=== PATIENT | female | born 1985 | race Caucasian/White ===

== ENCOUNTER 2022-06-17 18:43 | Emergency (ER) | payer OTHER ==
[2022-06-17 18:54] VITALS: BP 102/60; PULSE 92; RESP 16; TEMP 98
--- NOTE | 2022-06-17 19:26 | XR ---
EXAMINATION TYPE: XR finger LT DATE OF EXAM: 06/17/2022 COMPARISON: NONE HISTORY: Laceration TECHNIQUE: 3 views FINDINGS: I see no fracture nor dislocation. Joint spaces are normal. There is minimal soft tissue de formity on the medial aspect of the PIP joint consistent with a laceration. IMPRESSION: Normal laceration deformity. No fracture seen. No foreign body.
[2022-06-17] MEDS ORDERED: DIPH,PERTUS(ACELL)TETVAC-LF 0.5 ML VIAL IM ONE (19:50)
[2022-06-17] MEDS ORDERED: TOPICAL SKIN ADHESIVE 1 EACH AMP TOPICAL ONE (19:50)
--- NOTE | 2022-06-17 20:01 | ED ---
Wound/Laceration HPI - General Chief Complaint: Wound/Laceration Stated Complaint: lt hand laceration - [facility] Time Seen by Provider: 06/17/22 19:42 Source: patient, RN notes reviewed Mode of arrival: ambulatory Limitations: no limitations - History of Present Illness Initial Comments: This is a pleasant, [id number] 36-year-old female who presents to the emergency department after sustaining a laceration to the extensor aspect of her left index finger at work. 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 Patient did clean the cut and attempted to close it with liquid stitch. Patient states when she started using again she had some bleeding. Patient is complaining of some irritation pain to the area. Patient was concerned that the bone might have been broken. Patient denies any distal or proximal injuries. No distal paresthesias. Last tetanus is unknown. No headache, no fever or chills, no changes in vision or hearing, no sore throat or difficulty with speech, no neck pain, no chest pain or shortness of breath, no abdominal pain, no nausea or vomiting, no changes in urination or bowel movements, no numbness or tingling, no skin rashes or lesions. Past medical, surgical, social, and family history reviewed. - Related Data Home Medications Medication Instructions Recorded Confirmed clindamycin HCL [Cleocin HCl] 300 mg PO BID 06/17/22 06/17/22 modafiniL [Provigil] 100 mg PO BID PRN 06/17/22 06/17/22 Allergies Allergy/AdvReac Type Severity Reaction Status Date / Time amoxicillin Allergy Unknown Verified 06/17/22 20:14 Childhood Penicillins Allergy Unknown Verified 06/17/22 20:14 Childhood Review of Systems ROS Statement: Those systems with pertinent positive or pertinent negative responses have been documented in the HPI. ROS Other: All systems not noted in ROS Statement are negative. Past Medical History Additional Past Medical History / Comment(s): narcolepsy History of Any Multi-Drug Resistant Organisms: None Reported Past Surgical History: Section Additional Past Surgical History / Comment(s): tummy tuck, gastric bypass Past Psychological History: No Psychological Hx Reported Smoking Status: Never smoker Past Alcohol Use History: None Reported Past Drug Use History: None Reported General Exam - General Exam Comments Initial Comments: Patient in no distress, does not appear to be ill or toxic. Limitations: no limitations General appearance: alert, in no apparent distress Head exam: Present: atraumatic, normocephalic, normal inspection Eye exam: Present: normal appearance, EOMI Neck exam: Present: normal inspection Respiratory exam: Present: normal lung sounds bilaterally. Absent: respiratory distress Cardiovascular Exam: Present: regular rate, normal rhythm, normal heart sounds Extremities exam: Present: full ROM, tenderness (Minimal, dorsum of left index finger), normal capillary refill. Absent: pedal edema, joint swelling, other Left Elbow exam: Present: normal inspection, full ROM. Absent: tenderness Forearm Wrist exam: Present: normal inspection, full ROM. Absent: tenderness Hand Wrist exam: Present: full ROM, laceration (Ancillary laceration dorsum left index finger). Absent: tenderness (Mild tenderness dorsum of the left index finger) Neuro motor exam: Present: wrist extension intact, thumb opposition intact, thumb IP flexion intact, thumb adduction intact, fingers 2-5 abduction intact Neurosensory exam: Present: radial nerve intact, ulnar nerve intact, median nerve intact Vascular: Present: normal capillary refill. Absent: vascular compromise, Pallo, pulse deficit radial art, pulse deficit ulnar art Neurological exam: Present: alert, oriented X3, CN II-XII intact. Absent: motor sensory deficit Psychiatric exam: Present: normal affect, normal mood Skin exam: Present: warm, dry, normal color. Absent: rash, cyanosis, diaphoretic Course Vital Signs 06/17/22 18:51 Temperature 98 F Pulse Rate 92 Respiratory 16 Rate Blood Pressure 102/60 O2 Sat by Pulse 98 Oximetry Procedures - Laceration Laceration #1 Site: upper extremity (Left index finger) Size (cm): 1 Description: linear Depth: simple, single layer Pre-repair: wound explored, irrigated extensively, deep structures intact Type of Sutures: other (Tissue adhesive) Patient Tolerated Procedure: well, no complications - Orthopedic Splinting/Casting Injury #1 Side: left Upper Extremity Injury Location: finger Upper Extremity Immobilizer: finger (other) Additional Comments: Distal neurovascular status intact Medical Decision Making - Medical Decision Making No evidence of tendon dysfunction on physical exam. No evidence of foreign body or underlying structural damage on x-ray. Patient's closed with tissue adhesive. Finger splint applied. We'll keep the patient one-handed duty for 3 days. Patient counseled on signs and symptoms of infection. Counseled need for follow-up. Patient was told to return to the ER for any signs or symptoms worsen. Told to return immediately if any other problems arise. All questions answered. Treatment plan discussed. Patient in agreement Every effort has been made to ensure accuracy of this dictation. However, due to the limitations of electronic medical records and dictation devices, errors in charting still occur. Supervising Dr. Little - Radiology Data Radiology results: report reviewed, image reviewed Disposition Clinical Impression: Laceration of right index finger without foreign body without damage to nail, Need for prophylactic vaccination using diphtheria, tetanus, and acellular pertussis (DTaP) vaccine Disposition: HOME SELF-CARE Condition: Good Instructions (If sedation given, give patient instructions): Diphtheria/Pertussis/Tetanus Vaccine (By injection), Skin Adhesive Care (ED) Additional Instructions: Follow-up with your regular physician as directed. Return to the ER immediately if any symptoms worsen, new symptoms arise, or any other problems develop. Is patient prescribed a controlled substance at d/c from ED?: No Referrals: None,Stated [Primary Care Provider] - 1-2 days Time of Disposition: 20:04
== END 2022-06-17 20:45 | disposition home or self-care (01) ==
LOC: EC 18:43
DX: S61.211A Laceration without foreign body of left index finger without damage to nail, initial encounter (principal); Z23 Encounter for immunization; Z88.0 Allergy status to penicillin; W25.XXXA Contact with sharp glass, initial encounter
CPT/HCPCS: 12001; 90471; 90715; 99283